=== PATIENT | male | born 1985 | race American Indian/Alaskan Native ===

== ENCOUNTER 2016-12-24 09:01 | Emergency (ER) | payer SELFPAY ==
[2016-12-24] MEDS ORDERED: TORADOL IM ONE (09:36)
[2016-12-24] MEDS ORDERED: TYLENOL #3 PO ONE (09:36)
--- NOTE | 2016-12-24 09:41 | Emergency Department Report ---
ED ENT HPI - General Chief complaint: Dental/Oral Stated complaint: MOUTH PAIN Time Seen by Provider: 12/24/16 09:34 Source: patient Mode of arrival: Ambulatory Limitations: No Limitations - History of Present Illness Initial comments: 31-year-old -[place] male comes in complaining of severe tooth pain that started 1 week ago. Patient reports he went to another hospital they started him on antibiotics which she's had 4 days worth as well as ibuprofen. He reports that it is not helping his pain is a 10 out of 10 he's not able to sleep . He is requesting for something to get him out a relief. complaint: tooth pain - Related Data Previous Rx's Medication Instructions Recorded Last Taken Type Acetaminophen/Codeine 1 tab PO ONCE #12 tablet 12/24/16 Unknown Rx [Acetaminophen-Codeine #3 TAB] Allergies Allergy/AdvReac Type Severity Reaction Status Date / Time No Known Allergies Allergy Unverified 12/24/16 09:35 ED Dental HPI - General Chief complaint: Dental/Oral Stated complaint: MOUTH PAIN Time Seen by Provider: 12/24/16 09:34 Source: patient Mode of arrival: Ambulatory Limitations: No Limitations - Related Data Previous Rx's Medication Instructions Recorded Last Taken Type Acetaminophen/Codeine 1 tab PO ONCE #12 tablet 12/24/16 Unknown Rx [Acetaminophen-Codeine #3 TAB] Allergies Allergy/AdvReac Type Severity Reaction Status Date / Time No Known Allergies Allergy Unverified 12/24/16 09:35 ED Review of Systems ROS: Stated complaint: MOUTH PAIN Other details as noted in HPI Constitutional: denies: chills, fever ENT: dental pain ED Past Medical Hx - Medications Home Medications: Home Medications Medication Instructions Recorded Confirmed Last Taken Type Acetaminophen/Codeine 1 tab PO ONCE #12 tablet 12/24/16 Unknown Rx [Acetaminophen-Codeine #3 TAB] ED Physical Exam - General Limitations: No Limitations General appearance: alert, anxious - Head Head exam: Present: atraumatic - Expanded ENT Exam Expanded Teeth exam: Present: dental caries (11,13,15,17,18,21), fractured tooth # (11,13 ,15,17,18,21), dental tenderness # (11,13,15,17,18,21) - Respiratory Respiratory exam: Present: normal lung sounds bilaterally - Cardiovascular Cardiovascular Exam: Present: regular rate, normal rhythm, normal heart sounds ED Course Vital Signs 03/16/17 09:29 Temperature 98.2 F Pulse Rate 78 Respiratory 20 Rate O2 Sat by Pulse 98 Oximetry ED Medical Decision Making - Medical Decision Making Patient's been evaluated by this provider. We will order him a Toradol shot as well as a Tylenol 3 and will refer him to a dentist that he can afford. Discussed with patient that he needs to complete his antibiotics take his Motrin as prescribed. Prescribed Tylenol 3 [id number] pills for breakthrough pain Patient verbalized understanding Critical care attestation.: If time is entered above; I have spent that time in minutes in the direct care of this critically ill patient, excluding procedure time. ED Disposition Clinical Impression: Dental abscess Disposition: DISCHARGED TO HOME OR SELFCARE Is pt being admited?: No Does the pt Need Aspirin: No Condition: Stable Instructions: Dental Caries (ED), Dental Abscess (ED) Additional Instructions: Complete antibiotics as prescribed take her ibuprofen that was prescribed by the other facility as prescribed. Follow-up with the dentist as soon as possible we have provided a list for you. Prescriptions: Acetaminophen/Codeine [Acetaminophen-Codeine #3 TAB] 1 tab PO ONCE #12 tablet Referrals: [facility] [Outside] - 3-5 Days [facility] [Outside] - 3-5 Days Forms: Accompanied Note
== END 2016-12-24 10:09 | disposition home or self-care (01) ==
LOC: ED 09:01
DX: K04.7 Periapical abscess without sinus (principal)
CPT/HCPCS: 96372; 99282; J1885

== ENCOUNTER 2018-12-03 15:57 | Emergency (ER) | payer SELFPAY ==
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
[2018-12-03 16:28] VITALS: BP 118/77
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
== END 2018-12-03 18:40 | disposition home or self-care (01) ==
LOC: ED 15:57
DX: S16.1XXA Strain of muscle, fascia and tendon at neck level, initial encounter (principal); S39.012A Strain of muscle, fascia and tendon of lower back, initial encounter; K02.9 Dental caries, unspecified; M25.562 Pain in left knee; M25.561 Pain in right knee; J45.909 Unspecified asthma, uncomplicated; F17.200 Nicotine dependence, unspecified, uncomplicated; F12.10 Cannabis abuse, uncomplicated; Z91.013 Allergy to seafood; Y04.0XXA Assault by unarmed brawl or fight, initial encounter; Y93.89 Activity, other specified; Y92.039 Unspecified place in apartment as the place of occurrence of the external cause; Y99.8 Other external cause status
CPT/HCPCS: 99282